=== PATIENT | female | born 1990 | race Caucasian/White ===

== ENCOUNTER 2021-04-03 10:16 | Emergency (ER) | payer OTHER, MEDICAID ==
[~2021-04-03] VITALS: Ht 157.5 cm; Wt 106.6 kg
[2021-04-03] MEDS ORDERED: PRENATAL (10:28)
[2021-04-03] MEDS ORDERED: HUMALOG100 UNIT/1 SUBQ (10:28)
[2021-04-03] MEDS ORDERED: NOVOLIN 70100 UNIT/1 (10:28)
[2021-04-03] MEDS ORDERED: AMOXICILLIN 50500 MG PO (10:39)
[2021-04-03 10:42] VITALS: BP 143/78
== END 2021-04-03 10:43 | disposition home or self-care (01) ==
LOC: M.ERS 10:16
DX: O26.893 Other specified pregnancy related conditions, third trimester (principal); K08.89 Other specified disorders of teeth and supporting structures; R22.0 Localized swelling, mass and lump, head; Z88.6 Allergy status to analgesic agent; Z3A.33 33 weeks gestation of pregnancy